=== PATIENT | male | born 1985 | race Caucasian/White ===

== ENCOUNTER 2016-08-30 03:20 | Inpatient (IN) | payer MEDICAID ==
[~2016-08-30] VITALS: Ht 160 cm; Wt 63.3 kg
[2016-08-30] MEDS ORDERED: METH5TAB2 PO (03:40)
[2016-08-30] MEDS ORDERED: LORazepam 2 MG TABLET PO PRN (05:00)
[2016-08-30] MEDS ORDERED: OLANZapine 5 MG RAPDIS TABLET PO PRN (05:00)
[2016-08-30] MEDS ORDERED: ZOLPIDEM TARTRATE 10 MG TABLET PO PRN (05:00)
[2016-08-30 05:13] LABS: BASOPHILS # (AUTO) 0.02 K/uL (0.00-0.20); BASOPHILS % (AUTO) 0.3 % (0.0-2.0); EOSINOPHILS # (AUTO) 0.09 K/uL (0.00-0.70); EOSINOPHILS % (AUTO) 1.24 % (1.0-6.0); HEMATOCRIT 36.1 % (41-53); HEMOGLOBIN 12.2 g/dL (13.5-17.5); LYMPHOCYTES # (AUTO) 2.7 K/uL (1.0-4.8); LYMPHOCYTES % (AUTO) 36.2 % (22.0-44.0); MEAN CORPUSCULAR HEMOGLOBIN 28.4 pg (26.0-34.0); MEAN CORPUSCULAR HGB CONC 33.7 G/dL (31.0-37.0); MEAN CORPUSCULAR VOLUME 84 fL (80-100); MONOCYTES # (AUTO) 0.8 K/uL (0.1-1.0); MONOCYTES % (AUTO) 10.7 % (2.0-9.0); NEUTROPHILS # (AUTO) 3.9 K/uL (1.8-7.7); NEUTROPHILS % (AUTO) 51.6 % (40.0-70.0); PLATELET COUNT (AUTO) 235 K/uL (150-450); RED BLOOD CELL COUNT(AUTO) 4.29 MIL/uL (4.50-5.90); WHITE BLOOD COUNT (AUTO) 7.5 K/uL (4.5-11.0)
[2016-08-30 05:17] LABS: ANION GAP 12 mmol/L (8-16); CALCIUM, TOTAL 8.9 mg/dL (8.8-10.5); CARBON DIOXIDE 25 mmol/L (22-29); CHLORIDE 103 mmol/L (98-107); CREATININE 1.08 mg/dL (0.60-1.30); GLOMERULAR FILTR. RATE CALC > 60 mL/min (>60); SODIUM SERUM 140 mmol/L (136-145); UREA NITROGEN, BLOOD 14 mg/dL (7-18)
[2016-08-30 05:23] LABS: ALANINE AMINOTRANSFERASE 38 U/L (12-78); ALBUMIN 3.8 g/dL (3.4-5.0); ASPARTATE AMINOTRANSFERASE 40 U/L (15-37); BILIRUBIN,TOTAL 0.8 mg/dL (0.1-1.0); TOTAL PROTEIN, SERUM 7.5 g/dL (6.4-8.2)
[2016-08-30] MEDS ORDERED: POTASSIUM CHLORIDE 20 MEQ ER TABLET PO ONE (05:30)
[2016-08-30 11:47] LABS: APPEARANCE,URINE CLEAR (CLEAR); GLUCOSE, URINE (UA) NEGATIVE (NEGATIVE); KETONES,URINE TRACE mg/dL (NEGATIVE); LEUKOCYTE ESTERASE ,URINE NEGATIVE (NEGATIVE); OCCULT BLOOD,URINE NEGATIVE (NEGATIVE); PH,URINE 5.5 (5.0-8.0); PROTEIN,URINE TRACE (NEGATIVE)
[2016-08-30 11:50] LABS: ADD UA MICROSCOPIC NO
[2016-08-30] MEDS ORDERED: MAG HYDROX/AL HYDROX/SIMETH ES 30 ML SUSPENSION UDCUP PO PRN (14:00)
[2016-08-30] MEDS ORDERED: LOPERAMIDE HCL 2 MG CAPSULE PO PRN (14:00)
[2016-08-30] MEDS ORDERED: MAGNESIUM HYDROXIDE SUSPENSION 30 ML UDCUP PO PRN (14:00)
[2016-08-30] MEDS ORDERED: TUBERCULIN, PURIFIED PROTEIN DERIVATIVE 5 TU/0.1 ML SYG ID ONE (14:00)
[2016-08-30] MEDS ORDERED: GuaiFENesin/D-METHORPHAN [SUGAR-FREE] 200-20MG/10 ML SYRUP UDCUP PO PRN (14:00)
[2016-08-30] MEDS ORDERED: ACETAMINOPHEN 325 MG TABLET PO PRN (14:00)
[2016-08-30] MEDS ORDERED: PROMETHAZINE HCL 25 MG TABLET PO PRN (14:00)
[2016-08-30] MEDS ORDERED: HydrOXYzine PAMOATE 50 MG CAPSULE PO PRN (14:00)
[2016-08-30 16:48] VITALS: BP 103/65
[2016-08-30] MEDS: ACAMPROSATE CALCIUM 333 MG DR TABLET PO SCH (16:58)
[2016-08-30] MEDS: THIAMINE HCL 100 MG TABLET PO SCH (16:58)
[2016-08-30] MEDS ORDERED: INFLUENZA VIRUS VACCINE QVS 2016-17 (3YR+)/PF 60 MCG/0.5 ML SYRINGE IM ONE (17:00)
[2016-08-30] MEDS: OLANZapine 5 MG RAPDIS TABLET PO SCH (20:14)
[2016-08-31 06:50] VITALS: BP 107/66
[2016-08-31 08:10] VITALS: BP 100/60
[2016-08-31] MEDS: NICOTINE 14 MG/24 HOUR PATCH TD SCH (09:00)
[2016-08-31] MEDS: ACAMPROSATE CALCIUM 333 MG DR TABLET PO SCH ×3 (09:56→17:21)
[2016-08-31] MEDS: THIAMINE HCL 100 MG TABLET PO SCH ×2 (09:56→17:21)
[2016-08-31] MEDS: FOLIC ACID 1 MG TABLET PO SCH (09:56)
[2016-08-31] MEDS: MULTIVITAMINS WITH MINERALS, THERAPEUTIC TABLET PO SCH (09:56)
[2016-08-31] MEDS: BACITRACIN 28.4 GM OINTMENT TP SCH ×2 (09:56→17:21)
[2016-08-31] MEDS: FLUoxetine HCL 20 MG CAPSULE PO SCH (09:56)
[2016-08-31] MEDS: METHADONE HCL 10 MG TABLET PO SCH (09:57)
[2016-08-31 16:30] VITALS: BP 102/68
[2016-08-31] MEDS ORDERED: POTASSIUM CHLORIDE 20 MEQ ER TABLET PO ONE (17:15)
[2016-08-31] MEDS: OLANZapine 5 MG RAPDIS TABLET PO SCH (20:46)
[2016-09-01 07:04] VITALS: BP 109/63
[2016-09-01 08:26] VITALS: BP 111/63
[2016-09-01] MEDS: METHADONE HCL 10 MG TABLET PO SCH (10:05)
[2016-09-01] MEDS: FOLIC ACID 1 MG TABLET PO SCH (10:06)
[2016-09-01] MEDS: BACITRACIN 28.4 GM OINTMENT TP SCH ×2 (10:06→16:47)
[2016-09-01] MEDS: THIAMINE HCL 100 MG TABLET PO SCH ×2 (10:06→16:47)
[2016-09-01] MEDS: FLUoxetine HCL 20 MG CAPSULE PO SCH (10:06)
[2016-09-01] MEDS: MULTIVITAMINS WITH MINERALS, THERAPEUTIC TABLET PO SCH (10:06)
[2016-09-01] MEDS: ACAMPROSATE CALCIUM 333 MG DR TABLET PO SCH ×3 (10:06→16:47)
[2016-09-01] MEDS: NICOTINE 14 MG/24 HOUR PATCH TD SCH (10:06)
[2016-09-01] MEDS ORDERED: OLAN5Z PO (14:30)
[2016-09-01] MEDS ORDERED: FLUO-191 PO (14:30)
[2016-09-01] MEDS ORDERED: ACAM333T7 PO (14:30)
[2016-09-01 16:01] VITALS: BP 113/68
[2016-09-01] MEDS: OLANZapine 5 MG RAPDIS TABLET PO SCH (20:39)
[2016-09-02 00:05] VITALS: BP 103/63
[2016-09-02 08:43] VITALS: BP 115/67
[2016-09-02] MEDS: NICOTINE 14 MG/24 HOUR PATCH TD SCH (09:00)
[2016-09-02] MEDS: ACAMPROSATE CALCIUM 333 MG DR TABLET PO SCH ×2 (09:00→12:20)
[2016-09-02] MEDS: BACITRACIN 28.4 GM OINTMENT TP SCH (09:00)
[2016-09-02] MEDS: MULTIVITAMINS WITH MINERALS, THERAPEUTIC TABLET PO SCH (09:00)
[2016-09-02] MEDS: FLUoxetine HCL 20 MG CAPSULE PO SCH (09:00)
[2016-09-02] MEDS: FOLIC ACID 1 MG TABLET PO SCH (09:00)
[2016-09-02] MEDS: THIAMINE HCL 100 MG TABLET PO SCH (09:00)
[2016-09-02] MEDS: METHADONE HCL 10 MG TABLET PO SCH (09:00)
[2016-09-02] MEDS ORDERED: FLUO-191 PO (11:47)
[2016-09-02] MEDS ORDERED: ACAM333T7 PO (11:47)
[2016-09-02] MEDS ORDERED: OLAN5Z PO (11:47)
[2016-09-02] MEDS ORDERED: POTASSIUM CHLORIDE 10 MEQ ER TABLET PO ONE (12:15)
== END 2016-09-02 13:30 | disposition home or self-care (01) | DRG 750 ==
LOC: EMS 03:22 → B3A 13:07 → B2S 09-01 17:25
PROVIDERS: ADMIT Psychiatry & Neurology Psychiatry; ATTEND Psychiatry & Neurology Psychiatry
DX: F25.9 Schizoaffective disorder, unspecified (principal); F11.20 Opioid dependence, uncomplicated; F17.210 Nicotine dependence, cigarettes, uncomplicated; F12.90 Cannabis use, unspecified, uncomplicated; E87.6 Hypokalemia; F15.10 Other stimulant abuse, uncomplicated; F32.9 Major depressive disorder, single episode, unspecified; G47.00 Insomnia, unspecified; Z72.89 Other problems related to lifestyle; Z71.6 Tobacco abuse counseling; Z71.41 Alcohol abuse counseling and surveillance of alcoholic; Z71.51 Drug abuse counseling and surveillance of drug abuser; Z91.19 Patient's noncompliance with other medical treatment and regimen; Z79.899 Other long term (current) drug therapy; Z65.3 Problems related to other legal circumstances; Z28.21 Immunization not carried out because of patient refusal
CPT/HCPCS: 90471; 99285; G0480

== ENCOUNTER 2017-01-29 10:33 | Emergency (ER) | payer MEDICAID ==
[~2017-01-29] VITALS: Ht 160 cm; Wt 65.9 kg
[~2017-01-29 10:33] MED LIST: ACAM333T7 PO; FLUO-191 PO; OLAN5Z PO
[2017-01-29 11:01] LABS: BASOPHILS % (AUTO) 0.5 % (0.0-2.0); EOSINOPHILS % (AUTO) 0.4 % (1.0-6.0); HEMATOCRIT 41.4 % (41-53); HEMOGLOBIN 14.1 g/dL (13.5-17.5); LYMPHOCYTES # (AUTO) 2.1 K/uL (1.0-4.8); LYMPHOCYTES % (AUTO) 24.1 % (22.0-44.0); MEAN CORPUSCULAR HEMOGLOBIN 28.1 pg (26.0-34.0); MEAN CORPUSCULAR VOLUME 83 fL (80-100); MONOCYTES # (AUTO) 0.4 K/uL (0.1-1.0); MONOCYTES % (AUTO) 4.4 % (2.0-9.0); NEUTROPHILS # (AUTO) 6.2 K/uL (1.8-7.7); NEUTROPHILS % (AUTO) 70.6 % (40.0-70.0); PLATELET COUNT (AUTO) 399 K/uL (150-450); RED BLOOD CELL COUNT(AUTO) 5.01 MIL/uL (4.50-5.90); RED CELL DISTRIBUTION WIDTH 13.6 % (11.5-14.5); WHITE BLOOD COUNT (AUTO) 8.8 K/uL (4.5-11.0)
[2017-01-29 11:14] LABS: ANION GAP 11 mmol/L (8-16); CALCIUM, TOTAL 9.1 mg/dL (8.8-10.5); CARBON DIOXIDE 26 mmol/L (22-29); CHLORIDE 95 mmol/L (98-107); CREATININE 0.81 mg/dL (0.60-1.30); GLOMERULAR FILTR. RATE CALC > 60 mL/min (>60); POTASSIUM 3.7 mmol/L (3.5-5.1); SODIUM SERUM 132 mmol/L (136-145); UREA NITROGEN, BLOOD 14 mg/dL (7-18)
[2017-01-29 11:21] LABS: ALANINE AMINOTRANSFERASE 31 U/L (12-78); ALBUMIN 3.9 g/dL (3.4-5.0); ASPARTATE AMINOTRANSFERASE 32 U/L (15-37); BILIRUBIN,TOTAL 0.6 mg/dL (0.1-1.0); TOTAL PROTEIN, SERUM 8.3 g/dL (6.4-8.2)
[2017-01-29 13:20] VITALS: BP 134/72
== END 2017-01-29 13:20 | disposition home or self-care (01) ==
LOC: EMS 10:34
DX: F32.9 Major depressive disorder, single episode, unspecified (principal); F19.10 Other psychoactive substance abuse, uncomplicated; F20.9 Schizophrenia, unspecified; F17.210 Nicotine dependence, cigarettes, uncomplicated
CPT/HCPCS: 36415; 80053; 80307; 85025; 99284; G0480

== ENCOUNTER 2019-10-04 11:39 | Emergency (ER) | payer MEDICAID ==
[~2019-10-04] VITALS: Ht 162.6 cm; Wt 68.2 kg
[~2019-10-04 11:39] MED LIST changes: +OLAN5TAB40 PO; -OLAN5Z PO
[2019-10-04 12:45] LABS: BASOPHILS % (AUTO) 0.4 % (0.0-2.0); EOSINOPHILS % (AUTO) 0.7 % (1.0-6.0); HEMATOCRIT 37.7 % (41-53); HEMOGLOBIN 12.8 g/dL (13.5-17.5); LYMPHOCYTES # (AUTO) 1.6 K/uL (1.0-4.8); LYMPHOCYTES % (AUTO) 17.2 % (22.0-44.0); MEAN CORPUSCULAR HEMOGLOBIN 28.5 pg (26.0-34.0); MEAN CORPUSCULAR VOLUME 84 fL (80-100); MONOCYTES # (AUTO) 1.1 K/uL (0.1-1.0); MONOCYTES % (AUTO) 11.9 % (2.0-9.0); NEUTROPHILS # (AUTO) 6.3 K/uL (1.8-7.7); NEUTROPHILS % (AUTO) 69.8 % (40.0-70.0); PLATELET COUNT (AUTO) 273 K/uL (150-450); RED BLOOD CELL COUNT(AUTO) 4.49 MIL/uL (4.50-5.90); RED CELL DISTRIBUTION WIDTH 13.2 % (11.5-14.5)
[2019-10-04 12:49] LABS: CARBON DIOXIDE 13 mmol/L (22-29); CHLORIDE 98 mmol/L (98-107); POTASSIUM 3.1 mmol/L (3.5-5.1); SODIUM SERUM 131 mmol/L (136-145)
[2019-10-04 12:50] LABS: ANION GAP 20 mmol/L (8-16); CALCIUM, TOTAL 8.4 mg/dL (8.8-10.5); CREATININE 0.76 mg/dL (0.60-1.30); GLOMERULAR FILTR. RATE CALC > 60 mL/min (>60); GLUCOSE,RANDOM 122 mg/dL (70-110); UREA NITROGEN, BLOOD 14 mg/dL (7-18)
[2019-10-04 12:55] LABS: ALANINE AMINOTRANSFERASE 266 U/L (12-78); ALBUMIN 3.6 g/dL (3.4-5.0); ALKALINE PHOSPHATASE 82 U/L (46-116); ASPARTATE AMINOTRANSFERASE 243 U/L (15-37); BILIRUBIN,TOTAL 0.6 mg/dL (0.1-1.0); TOTAL PROTEIN, SERUM 7.5 g/dL (6.4-8.2)
[2019-10-04] MEDS ORDERED: HALOPERIDOL 5 MG TABLET PO ONE (13:00)
[2019-10-04] MEDS ORDERED: LORazepam 1 MG TABLET PO ONE (13:00)
[2019-10-04] MEDS ORDERED: POTASSIUM CHLORIDE 20 MEQ ER TABLET PO ONE (13:30)
[2019-10-04 17:30] VITALS: BP 114/72
== END 2019-10-04 18:00 | disposition home or self-care (01) ==
LOC: EMS 11:41
DX: F41.9 Anxiety disorder, unspecified (principal); F15.10 Other stimulant abuse, uncomplicated; F20.9 Schizophrenia, unspecified; F17.210 Nicotine dependence, cigarettes, uncomplicated
CPT/HCPCS: 36415; 80053; 85025; 99285; G0480

== ENCOUNTER 2019-10-05 16:31 | Inpatient (IN) | payer MEDICAID ==
[~2019-10-05] VITALS: Ht 160 cm; Wt 69.9 kg
[2019-10-05] MEDS ORDERED: HALOPERIDOL 5 MG TABLET PO ONE (17:00)
[2019-10-05] MEDS ORDERED: ACETAMINOPHEN 325 MG TABLET PO ONE (17:00)
[2019-10-05] MEDS ORDERED: LORazepam 1 MG TABLET PO ONE (17:00)
[2019-10-05 17:13] LABS: BASOPHILS % (AUTO) 0.5 % (0.0-2.0); EOSINOPHILS % (AUTO) 1.1 % (1.0-6.0); HEMATOCRIT 41.6 % (41-53); HEMOGLOBIN 13.7 g/dL (13.5-17.5); LYMPHOCYTES # (AUTO) 1.4 K/uL (1.0-4.8); LYMPHOCYTES % (AUTO) 19.7 % (22.0-44.0); MEAN CORPUSCULAR HEMOGLOBIN 27.5 pg (26.0-34.0); MEAN CORPUSCULAR HGB CONC 32.8 G/dL (31.0-37.0); MEAN CORPUSCULAR VOLUME 84 fL (80-100); MONOCYTES # (AUTO) 0.8 K/uL (0.1-1.0); MONOCYTES % (AUTO) 11.2 % (2.0-9.0); NEUTROPHILS # (AUTO) 4.8 K/uL (1.8-7.7); NEUTROPHILS % (AUTO) 67.5 % (40.0-70.0); PLATELET COUNT (AUTO) 305 K/uL (150-450); RED BLOOD CELL COUNT(AUTO) 4.96 MIL/uL (4.50-5.90); RED CELL DISTRIBUTION WIDTH 13.5 % (11.5-14.5)
[2019-10-05 17:28] LABS: ANION GAP 16 mmol/L (8-16); CALCIUM, TOTAL 8.7 mg/dL (8.8-10.5); CARBON DIOXIDE 19 mmol/L (22-29); CHLORIDE 101 mmol/L (98-107); GLOMERULAR FILTR. RATE CALC > 60 mL/min (>60); GLUCOSE,RANDOM 101 mg/dL (70-110); POTASSIUM 3.3 mmol/L (3.5-5.1); SODIUM SERUM 136 mmol/L (136-145); UREA NITROGEN, BLOOD 9 mg/dL (7-18)
[2019-10-05 17:33] LABS: ALANINE AMINOTRANSFERASE 392 U/L (12-78); ALBUMIN 3.6 g/dL (3.4-5.0); ALKALINE PHOSPHATASE 78 U/L (46-116); ASPARTATE AMINOTRANSFERASE 269 U/L (15-37); BILIRUBIN,TOTAL 0.8 mg/dL (0.1-1.0); TOTAL PROTEIN, SERUM 7.6 g/dL (6.4-8.2)
[2019-10-05 18:41] LABS: AMPHET/METH SCREEN,URINE POSITIVE (NEGATIVE); BARBITURATE SCREEN, URINE NEGATIVE (NEGATIVE); BENZODIAZEPINES SCREEN,URINE NEGATIVE (NEGATIVE); CANNABINOID SCREEN,URINE NEGATIVE (NEGATIVE); COCAINE SCREEN,URINE NEGATIVE (NEGATIVE); METHADONE SCREEN, URINE NEGATIVE (NEGATIVE); OPIATE SCREEN,URINE NEGATIVE (NEGATIVE)
[2019-10-05 18:44] LABS: PHENCYCLIDINE SCREEN,URINE NEGATIVE (NEGATIVE)
[2019-10-05] MEDS ORDERED: HALOPERIDOL 5 MG TABLET PO PRN (19:00)
[2019-10-05 21:15] VITALS: BP 133/81
[2019-10-05] MEDS ORDERED: POTASSIUM CHLORIDE 20 MEQ ER TABLET PO ONE (22:30)
[2019-10-06 00:57] VITALS: BP 99/44
[2019-10-06] MEDS ORDERED: ONDANSETRON HCL 4 MG TABLET PO PRN (07:45)
[2019-10-06] MEDS ORDERED: CloNIDine HCL 0.1 MG TABLET PO PRN (07:45)
[2019-10-06] MEDS ORDERED: LOPERAMIDE HCL 2 MG CAPSULE PO PRN (07:45)
[2019-10-06] MEDS ORDERED: NICOTINE 14 MG/24 HOUR PATCH TD PRN (07:45)
[2019-10-06] MEDS ORDERED: MAGNESIUM HYDROXIDE SUSPENSION 30 ML UDCUP PO PRN (07:45)
[2019-10-06] MEDS ORDERED: DOCUSATE SODIUM 100 MG CAPSULE PO PRN (07:45)
[2019-10-06] MEDS ORDERED: IBUPROFEN 400 MG TABLET PO PRN (07:45)
[2019-10-06] MEDS ORDERED: ACETAMINOPHEN 325 MG TABLET PO PRN (07:45)
[2019-10-06] MEDS ORDERED: GuaiFENesin/D-METHORPHAN [SUGAR-FREE] 200-20MG/10 ML SYRUP UDCUP PO PRN (07:45)
[2019-10-06] MEDS ORDERED: PETROLATUM,WHITE 28 GM JELLY TP PRN (07:45)
[2019-10-06] MEDS ORDERED: ALBUTEROL SULFATE HFA 90 MCG/PUFF 8 GM INHALER IH PRN (07:45)
[2019-10-06 08:08] LABS: POTASSIUM 3.4 mmol/L (3.5-5.1)
[2019-10-06 08:26] VITALS: BP 98/61
[2019-10-06] MEDS ORDERED: POTASSIUM CHLORIDE 20 MEQ ER TABLET PO ONE (11:30)
[2019-10-06] MEDS: FLUoxetine HCL 20 MG CAPSULE PO SCH (12:30)
[2019-10-06 16:27] VITALS: BP 137/63
[2019-10-06] MEDS: LURASIDONE HCL 40 MG TABLET PO SCH (17:14)
[2019-10-06] MEDS: LORazepam 2 MG TABLET PO PRN (17:17)
[2019-10-07 06:44] VITALS: BP 116/74
[2019-10-07 08:14] VITALS: BP 103/62
[2019-10-07] MEDS: FLUoxetine HCL 20 MG CAPSULE PO SCH (08:24)
[2019-10-07] MEDS: LORazepam 2 MG TABLET PO PRN ×2 (09:49→16:06)
[2019-10-07] MEDS ORDERED: HydrOXYzine PAMOATE 50 MG CAPSULE PO PRN (11:30)
[2019-10-07 12:29] VITALS: BP 108/63
[2019-10-07 16:01] VITALS: BP 129/77
[2019-10-07] MEDS: LURASIDONE HCL 40 MG TABLET PO SCH (16:06)
[2019-10-07 17:03] VITALS: BP 129/77
[2019-10-07] MEDS: ZOLPIDEM TARTRATE 10 MG TABLET PO PRN (20:32)
[2019-10-08 00:18] VITALS: BP 104/63
[2019-10-08 03:13] VITALS: BP 107/74
[2019-10-08] MEDS: LORazepam 2 MG TABLET PO PRN ×3 (08:18→18:58)
[2019-10-08] MEDS: FLUoxetine HCL 20 MG CAPSULE PO SCH (08:19)
[2019-10-08] MEDS: MAG HYDROX/AL HYDROX/SIMETH ES 30 ML SUSPENSION UDCUP PO PRN (08:30)
[2019-10-08 08:35] VITALS: BP 110/74
[2019-10-08 15:03] VITALS: BP 102/56
[2019-10-08 16:01] VITALS: BP 123/83
[2019-10-08] MEDS: LURASIDONE HCL 40 MG TABLET PO SCH (16:01)
[2019-10-08] MEDS: BusPIRone HCL 15 MG TABLET PO SCH (16:01)
[2019-10-09] VITALS: BP 126/67
[2019-10-09] MEDS: FLUoxetine HCL 20 MG CAPSULE PO SCH (08:22)
[2019-10-09] MEDS: BusPIRone HCL 15 MG TABLET PO SCH ×2 (08:22→16:01)
[2019-10-09] MEDS: LORazepam 2 MG TABLET PO PRN ×2 (08:44→15:21)
[2019-10-09 08:48] VITALS: BP 139/52
[2019-10-09] MEDS: MAG HYDROX/AL HYDROX/SIMETH ES 30 ML SUSPENSION UDCUP PO PRN (09:49)
[2019-10-09 10:07] VITALS: BP 139/52
[2019-10-09] MEDS: LURASIDONE HCL 40 MG TABLET PO SCH (16:01)
[2019-10-09 18:37] VITALS: BP 115/81
[2019-10-09 18:39] VITALS: BP 115/81
[2019-10-09] MEDS: ZOLPIDEM TARTRATE 10 MG TABLET PO PRN (20:29)
[2019-10-10 06:04] VITALS: BP 122/65
[2019-10-10 06:11] VITALS: BP 122/65
[2019-10-10 08:30] VITALS: BP 103/66
[2019-10-10] MEDS: FLUoxetine HCL 20 MG CAPSULE PO SCH (08:47)
[2019-10-10] MEDS: BusPIRone HCL 15 MG TABLET PO SCH ×2 (08:47→16:02)
[2019-10-10] MEDS: LORazepam 2 MG TABLET PO PRN ×2 (09:33→14:52)
[2019-10-10] MEDS: MetroNIDAZOLE 500 MG TABLET PO SCH ×3 (11:00→16:03)
[2019-10-10 11:38] VITALS: BP 103/66
[2019-10-10 16:00] VITALS: BP 101/73
[2019-10-10] MEDS: LURASIDONE HCL 40 MG TABLET PO SCH (16:02)
[2019-10-10 16:06] VITALS: BP 101/73
[2019-10-11 01:41] VITALS: BP 107/67
[2019-10-11 02:01] VITALS: BP 107/67
[2019-10-11] MEDS: ZOLPIDEM TARTRATE 10 MG TABLET PO PRN (02:42)
[2019-10-11 09:02] VITALS: BP 106/66
[2019-10-11] MEDS: FLUoxetine HCL 20 MG CAPSULE PO SCH (09:45)
[2019-10-11] MEDS: BusPIRone HCL 15 MG TABLET PO SCH (09:45)
[2019-10-11] MEDS: MetroNIDAZOLE 500 MG TABLET PO SCH ×3 (09:46→16:41)
[2019-10-11] MEDS: LORazepam 2 MG TABLET PO PRN (12:12)
[2019-10-11 12:55] VITALS: BP 118/74
[2019-10-11] MEDS: BusPIRone HCL 10 MG TABLET PO SCH (16:41)
[2019-10-11 17:12] VITALS: BP 99/64
[2019-10-11 17:35] VITALS: BP 99/64
[2019-10-11] MEDS: QUEtiapine FUMARATE 200 MG TABLET PO SCH (20:03)
[2019-10-12 01:20] VITALS: BP 103/62
[2019-10-12 02:56] VITALS: BP 103/62
[2019-10-12 08:59] VITALS: BP 104/65
[2019-10-12] MEDS: FLUoxetine HCL 20 MG CAPSULE PO SCH (10:04)
[2019-10-12] MEDS: MetroNIDAZOLE 500 MG TABLET PO SCH ×3 (10:04→16:36)
[2019-10-12] MEDS: BusPIRone HCL 10 MG TABLET PO SCH ×2 (10:04→16:37)
[2019-10-12] MEDS: LORazepam 2 MG TABLET PO PRN (14:21)
[2019-10-12 16:00] VITALS: BP 109/61
[2019-10-12] MEDS: QUEtiapine FUMARATE 200 MG TABLET PO SCH (20:09)
[2019-10-13 02:20] VITALS: BP 110/70
[2019-10-13 05:35] VITALS: BP 112/70
[2019-10-13] MEDS: FLUoxetine HCL 20 MG CAPSULE PO SCH (08:27)
[2019-10-13] MEDS: BusPIRone HCL 10 MG TABLET PO SCH ×2 (08:27→16:17)
[2019-10-13] MEDS: MetroNIDAZOLE 500 MG TABLET PO SCH ×3 (08:27→16:17)
[2019-10-13 10:32] VITALS: BP 100/60
[2019-10-13 16:00] VITALS: BP 103/77
[2019-10-13] MEDS: LORazepam 2 MG TABLET PO PRN (17:56)
[2019-10-13] MEDS: ZOLPIDEM TARTRATE 10 MG TABLET PO PRN (20:10)
[2019-10-13] MEDS: QUEtiapine FUMARATE 200 MG TABLET PO SCH (20:11)
[2019-10-14 00:37] VITALS: BP 106/65
[2019-10-14 01:48] VITALS: BP 106/65
[2019-10-14] MEDS: BusPIRone HCL 10 MG TABLET PO SCH ×2 (08:14→16:35)
[2019-10-14] MEDS: FLUoxetine HCL 20 MG CAPSULE PO SCH (08:14)
[2019-10-14] MEDS: MetroNIDAZOLE 500 MG TABLET PO SCH ×3 (08:15→16:35)
[2019-10-14 10:00] VITALS: BP 107/66
[2019-10-14 13:25] VITALS: BP 105/56
[2019-10-14] MEDS: LORazepam 2 MG TABLET PO PRN (14:06)
[2019-10-14 16:26] VITALS: BP 102/61
[2019-10-14] MEDS: QUEtiapine FUMARATE 200 MG TABLET PO SCH (20:19)
[2019-10-14] MEDS: ZOLPIDEM TARTRATE 10 MG TABLET PO PRN (20:19)
[2019-10-15 00:30] VITALS: BP 106/68
[2019-10-15 08:30] VITALS: BP 121/71
[2019-10-15] MEDS: BusPIRone HCL 10 MG TABLET PO SCH ×2 (08:45→16:25)
[2019-10-15] MEDS: MetroNIDAZOLE 500 MG TABLET PO SCH ×3 (08:45→16:25)
[2019-10-15] MEDS: FLUoxetine HCL 20 MG CAPSULE PO SCH (08:46)
[2019-10-15] MEDS: LORazepam 2 MG TABLET PO PRN (10:31)
[2019-10-15 16:01] VITALS: BP 112/69
[2019-10-15] MEDS: QUEtiapine FUMARATE 200 MG TABLET PO SCH (20:24)
[2019-10-15] MEDS: ZOLPIDEM TARTRATE 10 MG TABLET PO PRN (20:24)
[2019-10-16 00:05] VITALS: BP 121/73
[2019-10-16] MEDS: FLUoxetine HCL 20 MG CAPSULE PO SCH (08:07)
[2019-10-16] MEDS: MetroNIDAZOLE 500 MG TABLET PO SCH ×2 (08:07→12:33)
[2019-10-16] MEDS: BusPIRone HCL 10 MG TABLET PO SCH (08:07)
[2019-10-16 08:29] VITALS: BP 118/86
[2019-10-16] MEDS ORDERED: QUET200T PO (10:53)
[2019-10-16] MEDS ORDERED: BUSP10TA23 PO (10:53)
[2019-10-16] MEDS ORDERED: FLUO-191 PO (10:53)
== END 2019-10-16 13:05 | disposition home or self-care (01) | DRG 750 ==
LOC: EMS 16:32 → B2S 18:53
DX: F25.1 Schizoaffective disorder, depressive type (principal); R45.851 Suicidal ideations; R74.0 Nonspecific elevation of levels of transaminase and lactic acid dehydrogenase [LDH]; Z59.0 Homelessness; F41.9 Anxiety disorder, unspecified; E87.6 Hypokalemia; F10.10 Alcohol abuse, uncomplicated; F11.10 Opioid abuse, uncomplicated; Z79.899 Other long term (current) drug therapy; Z91.14 Patient's other noncompliance with medication regimen; F17.210 Nicotine dependence, cigarettes, uncomplicated; Z91.5 Personal history of self-harm; F15.10 Other stimulant abuse, uncomplicated
CPT/HCPCS: 83735; 84132; G0480; Q0162

== ENCOUNTER 2022-01-27 16:09 | Inpatient (IN) | payer MEDICAID ==
[~2022-01-27] VITALS: Ht 160 cm; Wt 69.9 kg
[~2022-01-27 16:09] MED LIST changes: -ACAM333T7 PO; +BUSP10TA23 PO; +FLUO-177 PO; -FLUO-191 PO; -OLAN5TAB40 PO; +QUET200T PO
[2022-01-27] MEDS ORDERED: BUSP15 PO (16:18)
[2022-01-27] MEDS ORDERED: ARIP15TA27 PO (16:18)
[2022-01-27] MEDS ORDERED: MIRT-92 PO (16:18)
[2022-01-27 17:32] LABS: BASOPHILS % (AUTO) 0.4 % (0.0-2.0); EOSINOPHILS % (AUTO) 2.4 % (1.0-6.0); HEMATOCRIT 41.3 % (41-53); HEMOGLOBIN 13.6 g/dL (13.5-17.5); LYMPHOCYTES % (AUTO) 35.3 % (22.0-44.0); MEAN CORPUSCULAR VOLUME 88 fL (80-100); MONOCYTES # (AUTO) 0.6 K/uL (0.1-1.0); MONOCYTES % (AUTO) 10.8 % (2.0-9.0); NEUTROPHILS # (AUTO) 2.9 K/uL (1.8-7.7); NEUTROPHILS % (AUTO) 51.1 % (40.0-70.0); PLATELET COUNT (AUTO) 166 K/uL (150-450)
[2022-01-27 17:41] LABS: ANION GAP 6 mmol/L (8-16); CALCIUM, TOTAL 8.4 mg/dL (8.8-10.5); CARBON DIOXIDE 30 mmol/L (22-29); CHLORIDE 99 mmol/L (98-107); CREATININE 0.68 mg/dL (0.60-1.30); GLUCOSE,RANDOM 56 mg/dL (70-110); POTASSIUM 3.4 mmol/L (3.5-5.1); SODIUM SERUM 135 mmol/L (136-145); UREA NITROGEN, BLOOD 15 mg/dL (7-18)
[2022-01-27 17:44] LABS: GLOMERULAR FILTR. RATE CALC > 60 mL/min (>60)
[2022-01-27 17:46] LABS: ALANINE AMINOTRANSFERASE 165 U/L (12-78); ALBUMIN 3.2 g/dL (3.4-5.0); ALKALINE PHOSPHATASE 100 U/L (46-116); ASPARTATE AMINOTRANSFERASE 108 U/L (15-37); BILIRUBIN,TOTAL 0.3 mg/dL (0.1-1.0); TOTAL PROTEIN, SERUM 7.4 g/dL (6.4-8.2)
[2022-01-27 17:57] LABS: COVID AG,FIA SOURCE NASOPHARYNGEAL
[2022-01-27] MEDS ORDERED: LORazepam 2 MG TABLET PO PRN (19:30)
[2022-01-27] MEDS ORDERED: HALOPERIDOL 5 MG TABLET PO PRN (19:30)
[2022-01-28 00:14] VITALS: BP 113/77
[2022-01-28] MEDS ORDERED: PNEUMOCOCCAL VACCINE POLYVALENT 0.5 ML VIAL [PPSV23] IM. ONE (01:00)
[2022-01-28 08:26] VITALS: BP 115/72
[2022-01-28] MEDS: ARIPiprazole 15 MG TABLET PO SCH (13:56)
[2022-01-28] MEDS ORDERED: DOCUSATE SODIUM 100 MG CAPSULE PO PRN (14:45)
[2022-01-28] MEDS ORDERED: NICOTINE 14 MG/24 HOUR PATCH TD PRN (14:45)
[2022-01-28] MEDS ORDERED: ALBUTEROL SULFATE HFA 90 MCG/PUFF 8 GM INHALER IH PRN (14:45)
[2022-01-28] MEDS ORDERED: MAGNESIUM HYDROXIDE SUSPENSION 30 ML UDCUP PO PRN (14:45)
[2022-01-28] MEDS ORDERED: CloNIDine HCL 0.1 MG TABLET PO PRN (14:45)
[2022-01-28] MEDS ORDERED: ACETAMINOPHEN 325 MG TABLET PO PRN (14:45)
[2022-01-28] MEDS ORDERED: GuaiFENesin/D-METHORPHAN [SUGAR-FREE] 200-20MG/10 ML SYRUP UDCUP PO PRN (14:45)
[2022-01-28] MEDS ORDERED: PETROLATUM,WHITE 28 GM JELLY TP PRN (14:45)
[2022-01-28] MEDS ORDERED: IBUPROFEN 400 MG TABLET PO PRN (14:45)
[2022-01-28] MEDS ORDERED: LOPERAMIDE HCL 2 MG CAPSULE PO PRN (14:45)
[2022-01-28] MEDS ORDERED: MAG HYDROX/AL HYDROX/SIMETH ES 30 ML SUSPENSION UDCUP PO PRN (14:45)
[2022-01-28] MEDS ORDERED: ONDANSETRON HCL 4 MG TABLET PO PRN (14:45)
[2022-01-28] MEDS: BusPIRone HCL 15 MG TABLET PO SCH (17:00)
[2022-01-28] MEDS: MIRTAZAPINE 15 MG TABLET PO SCH (20:22)
[2022-01-28 20:30] VITALS: BP 109/67
[2022-01-29] MEDS: ARIPiprazole 15 MG TABLET PO SCH (08:24)
[2022-01-29] MEDS: BusPIRone HCL 15 MG TABLET PO SCH ×2 (08:24→16:28)
[2022-01-29 08:36] VITALS: BP 117/67
[2022-01-29 09:13] LABS: FREE T4 (FREE THYROXINE) 0.7 ng/dL (0.76-1.46); THYROID STIMULATING HORMONE 0.19 uIU/mL (0.36-3.74)
[2022-01-29] MEDS: MIRTAZAPINE 15 MG TABLET PO SCH (20:10)
[2022-01-29 20:25] VITALS: BP 127/73
[2022-01-30 09:33] VITALS: BP 120/70
[2022-01-30] MEDS: ARIPiprazole 15 MG TABLET PO SCH (10:32)
[2022-01-30] MEDS: BusPIRone HCL 15 MG TABLET PO SCH ×2 (10:32→16:18)
[2022-01-30] MEDS: MIRTAZAPINE 15 MG TABLET PO SCH (20:17)
[2022-01-30 20:23] VITALS: BP 131/80
[2022-01-31 08:42] VITALS: BP 106/101
[2022-01-31] MEDS: ARIPiprazole 15 MG TABLET PO SCH (09:15)
[2022-01-31] MEDS: BusPIRone HCL 15 MG TABLET PO SCH ×2 (09:15→16:57)
[2022-01-31 10:13] VITALS: BP 121/77
[2022-01-31 20:52] VITALS: BP 126/77
[2022-01-31] MEDS: MIRTAZAPINE 30 MG TABLET PO SCH (21:38)
[2022-01-31] MEDS: ZOLPIDEM TARTRATE 10 MG TABLET PO PRN (23:54)
[2022-02-01] MEDS: ARIPiprazole 15 MG TABLET PO SCH (08:50)
[2022-02-01] MEDS: BusPIRone HCL 15 MG TABLET PO SCH ×2 (08:50→16:47)
[2022-02-01 09:03] VITALS: BP 113/72
[2022-02-01] MEDS ORDERED: NICOTINE POLACRILEX 2 MG LOZENGE PO PRN (16:45)
[2022-02-01] MEDS: MIRTAZAPINE 30 MG TABLET PO SCH (20:11)
[2022-02-01] MEDS: ZOLPIDEM TARTRATE 10 MG TABLET PO PRN (20:12)
[2022-02-01 20:57] VITALS: BP 120/77
[2022-02-02 08:24] VITALS: BP 119/70
[2022-02-02] MEDS: BusPIRone HCL 15 MG TABLET PO SCH (09:13)
[2022-02-02] MEDS: ARIPiprazole 15 MG TABLET PO SCH (09:13)
[2022-02-02] MEDS ORDERED: ARIP15TA27 PO (11:30)
[2022-02-02] MEDS ORDERED: BUSP15 PO (11:30)
[2022-02-02] MEDS ORDERED: MIRT-92 PO (11:30)
== END 2022-02-02 13:31 | disposition home or self-care (01) | DRG 750 ==
LOC: EMS 16:11 → B2S 19:15
PROVIDERS: ADMIT Psychiatry & Neurology Psychiatry; ATTEND Psychiatry & Neurology Psychiatry
DX: F25.0 Schizoaffective disorder, bipolar type (principal); E87.1 Hypo-osmolality and hyponatremia; R45.851 Suicidal ideations; Z20.822 Contact with and (suspected) exposure to COVID-19; E87.6 Hypokalemia; F10.10 Alcohol abuse, uncomplicated; F11.20 Opioid dependence, uncomplicated; F15.20 Other stimulant dependence, uncomplicated; F17.200 Nicotine dependence, unspecified, uncomplicated; Z71.6 Tobacco abuse counseling; Z59.00 Homelessness unspecified; Z79.899 Other long term (current) drug therapy; Z91.51 Personal history of suicidal behavior
CPT/HCPCS: 80053; 84439; 84443; 85025; 99285; G0480; Q9967